=== PATIENT | female | born 1950 | race Caucasian/White ===

== ENCOUNTER 2021-03-29 21:49 | Emergency (ER) | payer MEDICARE ==
[2021-03-29] MEDS ORDERED: Dexamethasone 20 MG/5 ML VIAL ONE (22:25)
== END 2021-03-29 22:45 | disposition home or self-care (01) ==
LOC: NAV ERS 21:49
DX: R21 Rash and other nonspecific skin eruption (principal); I10 Essential (primary) hypertension; E78.00 Pure hypercholesterolemia, unspecified; F17.210 Nicotine dependence, cigarettes, uncomplicated
CPT/HCPCS: 96372; 99282; J1100